=== PATIENT | male | born 1980 | race Caucasian/White ===

== ENCOUNTER 2016-04-03 20:30 | Inpatient (IN) | payer OTHER ==
[~2016-04-03] VITALS: Ht 172.7 cm; Wt 86.2 kg
[2016-04-03] MEDS ORDERED: NALOXONE PREFILLED SYRINGE 2 MG/2 ML SYRINGE ONE ×2 (20:39→23:12)
[2016-04-03] MEDS ORDERED: IV SET PRIMARY 1 EA INFUS.SET MC ONE (20:40)
[2016-04-03] MEDS ORDERED: IV NS 0.9% 500 ML IV ONE (20:40)
[2016-04-03 20:51] LABS: BASOPHILS % (AUTO) 0.8 % (0.0-2.0); DIFF TOTAL % 100 %; EOSINOPHILS # (AUTO) 0.2 /CMM (0.0-0.7); EOSINOPHILS % (AUTO) 4.6 % (0.0-6.0); HEMATOCRIT 39 % (39-51); HEMOGLOBIN 12.8 g/dL (13.5-17.5); LYMPHOCYTES # (AUTO) 1.9 /CMM (0.8-4.8); LYMPHOCYTES % (AUTO) 42.2 % (20.0-44.0); MEAN CORPUSCULAR HEMOGLOBIN 27 PG (26.0-33.0); MEAN CORPUSCULAR HGB CONC 33 g/dl (31.0-36.0); MEAN CORPUSCULAR VOLUME 82 fL (80-96); MONOCYTES # (AUTO) 0.4 /CMM (0.1-1.30); MONOCYTES % (AUTO) 10.4 % (2.0-12.0); NEUTROPHILS # (AUTO) 1.8 /CMM (1.8-8.9); PLATELET COUNT (AUTO) 248 /CMM (150-450); RED BLOOD CELL COUNT(AUTO) 4.81 MIL/uL (4.5-6.0); WHITE BLOOD COUNT (AUTO) 4.3 K/uL (4.3-11.0)
[2016-04-03 20:59] LABS: ANION GAP 12 (5-14); CALCIUM, SERUM 8.6 mg/dL (8.5-10.1); CARBON DIOXIDE 29 mmol/L (21-32); CHLORIDE 101 mmol/L (98-107); GFR 85 mL/min (>60); GLUCOSE 224 mg/dL (74-106); POTASSIUM 3.2 mmol/L (3.5-5.1); SODIUM SERUM 139 mmol/L (136-145); UREA NITROGEN, BLOOD 23 mg/dL (7-18)
[2016-04-03] MEDS ORDERED: NALOXONE HCL 0.4 MG/ML AMPUL IV ONE ×2 (21:00→23:30)
[2016-04-03] MEDS ORDERED: IV NS 0.9% 500 ML BAG IV ONE (21:00)
[2016-04-03 21:07] LABS: TROPONIN I < 0.017 ng/mL (0.00-0.056)
[2016-04-03] MEDS ORDERED: POTASSIUM CHLORIDE 20 MEQ TAB.PRT.SR PO ONE ×2 (21:30→21:33)
[2016-04-03] MEDS ORDERED: IV SET PRIMARY PUMP SET 1 EA INFUS.SET MC ONE (23:13)
[2016-04-03] MEDS ORDERED: IV D5W 250 ML IV ONE (23:14)
[2016-04-03] MEDS ORDERED: NALOXONE PREFILLED SYRINGE 2 MG/2 ML SYRINGE IV ONE (23:30)
[2016-04-03] MEDS ORDERED: NALOXONE HCL 2 MG in IV D5W 245 ML IV PRN (23:30)
[2016-04-04] VITALS (11 sets, daily range): BP systolic 103–129; BP diastolic 57–79
[2016-04-04] MEDS ORDERED: IV D5/0.45 NACL 1,000 ML IV PRN (00:31)
[2016-04-04] MEDS ORDERED: Z GUARD REMEDY 2 OZ OINT TP PRN (01:00)
[2016-04-04] MEDS ORDERED: ACETAMINOPHEN 325 MG TABLET PO PRN (01:00)
[2016-04-04] MEDS ORDERED: MAG HYDROX/AL HYDROX/SIMETH 30 ML UDC PO PRN (01:00)
[2016-04-04] MEDS ORDERED: ZOLPIDEM TARTRATE 5 MG TABLET PO PRN (01:00)
[2016-04-04] MEDS ORDERED: NALOXONE HCL 2 MG in IV D5W 245 ML IV PRN (01:00)
[2016-04-04] MEDS ORDERED: MAGNESIUM HYDROXIDE 30 ML UDC PO PRN (01:00)
[2016-04-04] MEDS ORDERED: ONDANSETRON HCL/PF 4 MG/2 ML VIAL IVP PRN (01:00)
[2016-04-04] MEDS ORDERED: LEVOFLOXACIN 750 MG /D5W 150ML 150 ML IV SCH (01:30)
[2016-04-04] MEDS ORDERED: IV NS 0.9% 1,000 ML BAG IV ONE (01:30)
[2016-04-04] MEDS ORDERED: SECONDARY IV SET 1 EA INFUS.SET MC ONE (01:39)
[2016-04-04] MEDS ORDERED: IV NS 0.9% 1,000 ML ONE (01:39)
[2016-04-04] MEDS ORDERED: IV SET PRIMARY PUMP SET 1 EA INFUS.SET MC ONE (01:39)
[2016-04-04] MEDS ORDERED: IV D5/0.45 NACL 1,000 ML IV ONE (01:40)
[2016-04-04 01:58] LABS: LACTIC ACID 2.9 mmol/L (0.4-2.0)
[2016-04-04] MEDS ORDERED: NALOXONE HCL 0.4 MG/ML AMPUL ONE ×2 (03:09)
[2016-04-04] MEDS ORDERED: IV D5W 250 ML IV ONE (03:10)
[2016-04-04] MEDS ORDERED: PANTOPRAZOLE 40 MG TABLET.DR PO SCH (07:30)
[2016-04-04 07:50] LABS: ADD UA MICROSCOPIC YES; KETONES,URINE 1+ (NEGATIVE); LEUKOCYTE ESTERASE ,URINE NEGATIVE (NEGATIVE)
[2016-04-04 07:58] LABS: ADD URINE CULTURE NO; RBC,URINE NONE SEEN /HPF (0-2); WBC,URINE NONE SEEN /HPF (0-3)
[2016-04-04 08:19] LABS: CANNABINOID, URINE NEGATIVE (NEGATIVE); PHENCYCLIDINE SCREEN,URINE NEGATIVE (NEGATIVE)
[2016-04-04] MEDS ORDERED: CLON0.5T4 PO (08:25)
[2016-04-04 10:10] LABS: ALBUMIN 3.8 g/dL (3.4-5.0); BILIRUBIN,DIRECT 0.1 mg/dL (0.0-0.2); BILIRUBIN,TOTAL 0.3 mg/dL (0.2-1.0); INDIRECT BILIRUBIN 0.2 mg/dL (0.0-1.1); TOTAL PROTEIN, SERUM 7.5 g/dL (6.4-8.2)
[2016-04-04 21:41] LABS: *LACTIC ACID REFLEX FLAG YES
== END 2016-04-04 11:30 | disposition left against medical advice (07) | DRG 720 ==
LOC: ER 20:31 → ICU 23:46
PROVIDERS: ADMIT Internal Medicine; ATTEND Internal Medicine
PROC: 05H533Z Insertion of Infusion Device into Right Subclavian Vein, Percutaneous Approach (ICD-10-PCS; principal; 2016-04-04)
DX: A41.9 Sepsis, unspecified organism (principal); J96.00 Acute respiratory failure, unspecified whether with hypoxia or hypercapnia; J69.0 Pneumonitis due to inhalation of food and vomit; G93.41 Metabolic encephalopathy; T40.1X1A Poisoning by heroin, accidental (unintentional), initial encounter; F32.9 Major depressive disorder, single episode, unspecified; E87.6 Hypokalemia; R73.9 Hyperglycemia, unspecified; F41.9 Anxiety disorder, unspecified
CPT/HCPCS: 36415; 70450-TC; 71010-TC; 80048-TC; 80076-TC; 80305; 81000-TC; 82553-TC; 83605-TC; 84484-TC; 85025-TC; 87081-TC; 87086-TC; A4606; G0480; G6039-TC; J1956; J2310; J3490; J7030; J7040; J7060; Z7610